=== PATIENT | male | born 2000 | race Two or more races ===

== ENCOUNTER 2023-08-27 18:30 | Emergency (ER) | payer MEDICAID ==
[~2023-08-27] VITALS: Ht 175.3 cm; Wt 89.1 kg
[2023-08-27 18:33] VITALS: BP 152/85; PULSE 87; RESP 18; TEMP 98.6; O2SAT 99
== END 2023-08-27 23:03 | disposition home or self-care (01) ==
LOC: ER 18:31
CPT/HCPCS: 99283